=== PATIENT | male | born 1975 | race Caucasian/White ===

== ENCOUNTER 2024-03-17 23:47 | Emergency (ER) | payer BC, OTHER ==
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
[2024-03-18 02:17] VITALS: BP 115/77; PULSE 80; RESP 16; TEMP 98.5
== END 2024-03-18 02:06 | disposition home or self-care (01) ==
LOC: EC 23:47
DX: S09.90XA Unspecified injury of head, initial encounter (principal); F12.90 Cannabis use, unspecified, uncomplicated; Z88.8 Allergy status to other drugs, medicaments and biological substances; V89.2XXA Person injured in unspecified motor-vehicle accident, traffic, initial encounter; Y92.411 Interstate highway as the place of occurrence of the external cause
CPT/HCPCS: 70450; 72125; 99284